=== PATIENT | female | born 1990 | race Caucasian/White ===

== ENCOUNTER 2017-07-06 21:05 | Emergency (ER) | payer BC, OTHER ==
[~2017-07-06] VITALS: Ht 157.5 cm; Wt 96.5 kg
[2017-07-06 21:21] VITALS: Ht 157.5 cm; Wt 96.5 kg
[2017-07-06] MEDS ORDERED: KETOROLAC 60 MG INJ IM STA (23:01)
[2017-07-06] MEDS ORDERED: DEXAMETHASONE 10 MG/ML 1 ML INJ PO ONE (23:30)
[2017-07-07] MEDS ORDERED: NAPR-260 PO (00:26)
[2017-07-07] MEDS ORDERED: MED4DP PO (00:27)
[2017-07-07] MEDS ORDERED: HYDR-906 PO (00:28)
[2017-07-07 00:45] VITALS: BP 125/85; PULSE 75; RESP 16
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
== END 2017-07-07 00:55 | disposition home or self-care (01) ==
LOC: FTE 21:05
DX: M54.5 Low back pain (principal)
CPT/HCPCS: 96372; 99284; J1100; J1885